=== PATIENT | male | born 1975 | race Caucasian/White ===

== ENCOUNTER 2018-06-12 07:30 | Emergency (ER) | payer MEDICARE, OTHER ==
--- NOTE | 2018-06-12 08:29 | ED ---
Shortness of Breath - HPI Summary HPI Summary: This patient is a 43 year old M presenting to [facility] accompanied by his with a chief complaint of SOB and coughing since yesterday days due to dust exposure at his house. Patient reports coughing has resolved since arrival at ED. Denies chest pain, fever, chills, nausea, and vomiting. 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 Dr. Jones is patients PCP. - History of Current Complaint Chief Complaint: EDShortnessOfBreath Time Seen by Provider: 06/12/18 08:12 Hx Obtained From: Patient Onset/Duration: Gradual Onset, Lasting Days Timing: Constant Current Severity: None Dyspnea At: Rest Aggrevating Factors: Allergens Alleviating Factors: Other - removal from allergens Associated Signs & Symptoms: Cough (Nonproductive) Related History: Similar Episode - reactive airway disease, vocal cord dysfunction - Allergy/Home Medications Allergies/Adverse Reactions: Allergies Allergy/AdvReac Type Severity Reaction Status Date / Time amoxicillin Allergy Unknown Verified 06/12/18 07:39 Reaction Details ampicillin Allergy Unknown Verified 06/12/18 07:39 Reaction Details anakinra [From Kineret] Allergy Unknown Verified 06/12/18 07:39 Reaction Details erythromycin base Allergy Unknown Verified 06/12/18 07:39 Reaction Details gabapentin Allergy Unknown Verified 06/12/18 07:39 Reaction Details hydroxychloroquine Allergy Unknown Verified 06/12/18 07:39 [From Plaquenil] Reaction Details Methotrexate Analogues Allergy Unknown Verified 06/12/18 07:39 Reaction Details NSAIDS (Non-Steroidal Allergy Unknown Verified 06/12/18 07:39 Anti-Inflamma Reaction Details Opioids - Morphine Analogues Allergy Unknown Verified 06/12/18 07:39 Reaction Details Opioids-Meperidine and Allergy Unknown Verified 06/12/18 07:39 Related Reaction Details Opioids-Methadone and Related Allergy Unknown Verified 06/12/18 07:39 Reaction Details Penicillins Allergy Unknown Verified 06/12/18 07:39 Reaction Details prednisone Allergy Unknown Verified 06/12/18 07:39 Reaction Details tobramycin Allergy Unknown Verified 06/12/18 07:39 Reaction Details vancomycin Allergy Unknown Verified 06/12/18 07:39 Reaction Details Antihistamines Allergy Unknown Uncoded 06/12/18 07:39 Reaction Details PMH/Surg Hx/FS Hx/Imm Hx Endocrine/Hematology History: Reports: Other Endocrine/Hematological Disorders - Behcets disease, Chidi Johnsons syndrome Respiratory History: Reports: Other Respiratory Problems/Disorders - reactive airway disease, vocal cord dysfunction Neurological History: Reports: Hx Seizures Infectious Disease History: No Infectious Disease History: Denies: Traveled Outside the [place] in Last 30 Days - Family History Known Family History: Negative: Diabetes - Social History Lives: With Family Alcohol Use: None Substance Use Type: Reports: None Smoking Status (MU): Former Smoker Review of Systems Negative: Fever, Chills Negative: Chest Pain Positive: Shortness Of Breath, Cough Negative: Vomiting, Nausea All Other Systems Reviewed And Are Negative: Yes Physical Exam - Summary Physical Exam Summary: GENERAL: Patient is a well developed and nourished male who is lying comfortable in the stretcher. Patient is not in any acute respiratory distress. HEAD AND FACE: Normocephalic EYES: PERRLA, EOMI x 2. EARS: Hearing grossly intact. MOUTH: Oropharynx within normal limits. NECK: Supple, trachea is midline, no adenopathy, no JVD, no carotid bruit. CHEST: Symmetric, no tenderness at palpation LUNGS: Clear to auscultation bilaterally. No wheezing or crackles. CVS: Regular rate and rhythm, S1 and S2 present, no murmurs or gallops appreciated. ABDOMEN: Soft, non-tender. Bowel sounds are normal. No abdominal abnormal pulsations. EXTREMITIES: Full ROM in all major joints, no edema, no cyanosis or clubbing. NEURO: Alert and oriented x 3. No acute neurological deficits. Speech is normal and follows commands. SKIN: Dry and warm Triage Information Reviewed: Yes Vital Signs On Initial Exam: Initial Vitals Temp Pulse Resp BP Pulse Ox 98.2 F 88 18 125/91 97 06/12/18 07:40 06/12/18 07:40 06/12/18 07:40 06/12/18 07:40 06/12/18 07:40 Vital Signs Reviewed: Yes Diagnostics - Vital Signs Vital Signs Temp Pulse Resp BP Pulse Ox 06/12/18 08:11 20 06/12/18 08:09 74 113/72 97 06/12/18 08:08 85 96 06/12/18 07:40 98.2 F 88 18 125/91 97 - Laboratory Result Diagrams: 06/12/18 08:26 06/12/18 08:26 Lab Statement: Any lab studies that have been ordered have been reviewed, and results considered in the medical decision making process. - Radiology CXR Radiology Interpretation Completed By: Radiologist - No evidence for acute intrathoracic disease. ED Physician has reviewed this report. - EKG 0824 Cardiac Rate: NL - 76 BPM EKG Rhythm: Sinus Rhythm EKG Interpretation: most likely benign early repolarization Re-Evaluation - Re-Evaluation 1 Re-Evaluation Time: 10:50 Comment: Patient's nurse spoke to director of social services. Discussed housing options. An admission over the weekned was offered; however patient denied. apartment assistant manager will come see patient and further discuss options. 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 Patient reports coughing has resolved since arrival at ED. Denies chest pain, fever, chills, nausea, and vomiting. 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 EKG and CXR are unremarkble for active disease. Bloodwork is unremarkable. A social work consult was ordered. Options were discussed with patients nurse, a weekend admission was offered bu denied due to finanaces. THe wrapper caser came to the ED to discuss options with patient. They recommend patient be put up in a hotel for the weekend and patient was given multiple housing services in the [facility]. Patient will be discharged. I discussed results with patient and he agrees with this plan. He is hemodynamically stable upon discharge. Strict return precautions given and he will otherwise follow up with his PCP. - Diagnoses Provider Diagnoses: Cough Discharge - Sign-Out/Discharge Documenting (check all that apply): Patient Departure - discharge - Discharge Plan Condition: Stable Disposition: HOME Patient Education Materials: Allergies (ED), Acute Cough (ED) Forms: *Gen. Provider Communication Referrals: [facility] [Outside] ([facility] assists area low income families and individuals with affordable housing opportunities and related services.) [facility] [Outside] (You can contact the rescue mission to assist with housing Thursday through Thursday.) [facility] - Homeless Services [Outside] Cayden Jones MD [Primary Care Provider] - Additional Instructions: RETURN TO THE EMERGENCY DEPARTMENT FOR CHANGING OR WORSENING SYMPTOMS. - Billing Disposition and Condition Condition: STABLE Disposition: Home - Attestation Statements Document Initiated by Enrique: Yes Documenting Scribe: Patricia Hwang Provider For Whom Enrique is Documenting (Include Credential): Kwan Sandoval MD Scribe Attestation: Patricia Veliz, scribed for Kwan Sandoval MD on 06/13/18 at 1131. Scribe Documentation Reviewed: Yes Provider Attestation: The documentation as recorded by the [email or web address] accurately reflects the service I personally performed and the decisions made by me, Kwan Sandoval MD
[2018-06-12 08:39] LABS: ABS Basophils 0 10^3/ul (0-0.2); ABS Eosinophils 0.1 10^3/ul (0-0.6); ABS Lymphocytes 1.6 10^3/ul (1.0-4.8); ABS Monocytes 0.5 10^3/ul (0-0.8); ABS Neutrophils 3.6 10^3/ul (1.5-7.7); ABS Nucleated RBC 0 10^3/ul; Eosinophil % 1.5 % (0-6); Hematocrit 45 % (42-52); Hemoglobin 15.6 g/dl (14.0-18.0); Lymphocyte % 27.7 % (25-47); Mean Corpuscular HGB Conc 35 g/dl (31-36); Mean Corpuscular Hemoglobin 30 pg (27-31); Mean Corpuscular Volume 86 fL (80-94); Mean Platelet Volume 7.5 um3 (7.4-10.4); Nucleated Red Blood Cells % 0.1; Platelet Count 284 10^3/ul (150-450); Red Blood Count 5.21 10^6/ul (4.00-5.40); Red Cell Distribution Width 14 % (10.5-15); White Blood Count 5.8 10^3/ul (3.5-10.8)
--- NOTE | 2018-06-12 08:48 | RAD ---
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 History of Baldwin-Lev syndrome. Multiple allergies. COMPARISON: December 22, 2008 TECHNIQUE: Dual energy PA and routine lateral views of the chest were obtained. REPORT: Mild elevation of the RIGHT hemidiaphragm increased over the 2008 exam. No focal pulmonary lesion, compelling alveolar consolidation, pleural effusion, pneumothorax. The heart, pulmonary vasculature, and mediastinal contours are unremarkable. IMPRESSION: #. No evidence for acute intrathoracic disease.
[2018-06-12 09:06] LABS: EGFR Non-African American 102.1 (>60)
[2018-06-12 12:21] VITALS: BP 130/77
== END 2018-06-12 12:21 | disposition home or self-care (01) ==
LOC: ED 07:30
DX: R05 Cough (principal); R06.02 Shortness of breath; Z88.6 Allergy status to analgesic agent; Z88.1 Allergy status to other antibiotic agents; Z88.0 Allergy status to penicillin; Z88.8 Allergy status to other drugs, medicaments and biological substances; Z87.891 Personal history of nicotine dependence
CPT/HCPCS: 36415; 71046; 80053; 83605; 84484; 85025; 93005; 99282